=== PATIENT | male | born 2000 | race Caucasian/White ===

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

== ENCOUNTER 2021-02-20 01:29 | Emergency (ER) | payer MEDICAID ==
[2021-02-20] MEDS ORDERED: Ondansetron 4 MG/2 ML SDV IVPUSH ONE (02:06)
[2021-02-20] MEDS ORDERED: HYDROmorphone 0.5 MG/0.5 ML Syringe IVPUSH ONE (02:06)
[2021-02-20] MEDS ORDERED: Ketorolac 30 MG/ML SDV IVPUSH STA (02:06)
--- NOTE | 2021-02-20 02:10 | EDM.PDOC ---
ED HPI GENERAL MEDICAL PROBLEM - General Chief Complaint: Back Pain or Injury Stated Complaint: KIDNEY PAIN/VOMITING Time Seen by Provider: 02/20/21 01:53 Source of Information: Reports: Patient, Family () History Limitations: Reports: No Limitations - History of Present Illness INITIAL COMMENTS - FREE TEXT/NARRATIVE: Mr. Adams is a pleasant 20-year-old man who now presents the ED stating that he developed sudden-onset sharp lower back pain around 19:00 last night, 01/19/2021. The pain is only felt in his lower back, and does not radiate. He states that the pain waxes and wanes, and that he feels nauseated and has vomited when the pain increases. He has not identified any modifiers. No prior similar symptoms. He states that he took some ibuprofen, which did not help. The patient also reports that he has had 1 week of a nonproductive cough, along with a subjective fever and chills. No urinary symptoms. Here in the ED, the patient is found to be hemodynamically stable, afebrile, saturating 99% on room air. He appears to be comfortable, in no acute distress. Prior to a week ago, the patient denies having a recent fever, chills, sore throat, ear pain, nasal or sinus congestion, cough, dyspnea, chest pain, palpitations, nausea, vomiting, constipation, diarrhea, abdominal pain, urinary symptoms, recent weight gain or weight loss, recent bloody bowel movements or black bowel movements, recent joint aches, headaches, or rashes. The patient does not have a PCP. He received a single J&J COVID vaccination, although no influenza vaccination t his season. Lower Back Pain Score (Numeric/FACES): 4 - Related Data Allergies Allergy/AdvReac Type Severity Reaction Status Date / Time No Known Allergies Allergy Verified 02/20/21 01:51 Home Meds: Home Meds . [No Known Home Meds] 11/28/20 [History] Past Medical History Psychiatric History: Reports: ADHD (untreated) Social & Family History - Tobacco Use Tobacco Use Status *Q: Former Tobacco User Tobacco Use Within Last Twelve Months: Vaping (Nicotine + THC) Years of Tobacco use: 3 Packs/Tins Daily: 1 Month/Year Tobacco Last Used: Quit Jan 2021 Tobacco Use Comment: Started smoking 2018 - Alcohol Use Alcohol Use History: Yes Alcohol Use Frequency: Socially - Recreational Drug Use Recreational Drug Use: Yes Drug Use in Last 12 Months: Yes Recreational Drug Type: Reports: Marijuana/Hashish (smokes regularly) - Living Situation & Occupation Living situation: Reports: , with Spouse Occupation: Employed (Landscaping + construction) ED ROS GENERAL - Review of Systems Review Of Systems: Comprehensive ROS is negative, except as noted in HPI. ED EXAM,LOWER BACK PAIN/INJURY - Physical Exam Exam: See Below Exam Limited By: No Limitations General Appearance: Alert, WD/WN, No Apparent Distress (although says he feels like about to vomit) Eye Exam: Bilateral Eye: EOMI, Normal Inspection Ears: Normal External Exam, Hearing Grossly Normal Nose: Normal Inspection Throat/Mouth: Normal Inspection, Normal Lips, Normal Voice, No Airway Compromise Head: Atraumatic, Normocephalic Neck: Normal Inspection, Full Range of Motion Respiratory/Chest: No Respiratory Distress, Lungs Clear, Normal Breath Sounds, No Accessory Muscle Use Cardiovascular: Normal Peripheral Pulses, Regular Rate, Rhythm, No Edema, No Gallop, No JVD, No Murmur, No Rub GI/Abdominal: Normal Bowel Sounds, Soft, Non-Tender, No Organomegaly, No Distention, No Abnormal Bruit, No Mass Back Exam: Normal Inspection, Full Range of Motion, CVA Tenderness (L) (minimal, if any), CVA Tenderness (R) Extremities: Normal Inspection, Normal Range of Motion, No Pedal Edema, Normal Capillary Refill Neurological: Alert, No Motor/Sensory Deficits, Oriented x 3 Psychiatric: Normal Affect Skin Exam: Warm, Dry, Intact, Normal Color, No Rash Course - Vital Signs Last Recorded V/S: Last Vital Signs Temp 36.4 C 02/20/21 01:47 Pulse 89 02/20/21 01:47 Resp 16 02/20/21 01:47 BP 128/79 02/20/21 01:47 Pulse Ox 99 02/20/21 01:47 - Orders/Labs/Meds Orders: Active Orders 24 hr Category Date Time Status Abdomen Pelvis wo Cont [CT] Stat Exams 02/20/21 02:06 Taken Labs: Laboratory Tests 02/20/21 02/20/21 Range/Units 01:56 04:00 Urine Color Yellow (Yellow) Urine Appearance Clear (Clear) Urine pH 6.0 (5.0-8.0) Ur Specific [place] 1.020 (1.005-1.030) Urine Protein 1+ H (Negative) Urine Glucose (UA) Negative (Negative) Urine Ketones Negative (Negative) Urine Occult Blood Trace-lysed H (Negative) Urine Nitrite Negative (Negative) Urine Bilirubin Negative (Negative) Urine Urobilinogen 0.2 (0.2-1.0) Ur Leukocyte Esterase Trace H (Negative) U Hyaline Cast (Auto) 5-10 H (0-5) /lpf Urine RBC 0-5 (0-5) /hpf Urine WBC 0-5 (0-5) /hpf Ur Squamous Epith Cells 0-5 (0-5) /hpf Urine Bacteria Few (FEW) /hpf Urine Mucus Rare (FEW) /hpf SARS-CoV-2 RNA (MARLO) Negative (NEGATIVE) Meds: Medications Discontinued Medications Generic Name Dose Route Start Last Admin Trade Name Freq PRN Reason Stop Dose Admin Hydromorphone HCl 0.5 mg 02/20/21 02:06 02/20/21 02:30 Hydromorphone 0.5 Mg/0.5 Ml Syringe IVPUSH 02/20/21 02:07 0.5 mg ONETIME ONE Administration Sodium Chloride 1,000 mls @ 150 mls/hr 02/20/21 02:15 02/20/21 02:29 Normal Saline IV 150 mls/hr ASDIRECTED SAM Administration Ketorolac Tromethamine 30 mg 02/20/21 02:06 02/20/21 02:29 Ketorolac 30 Mg/Ml Sdv IVPUSH 02/20/21 02:07 30 mg ONETIME STA Administration Ondansetron HCl 4 mg 02/20/21 02:06 02/20/21 02:29 Ondansetron 4 Mg/2 Ml Sdv IVPUSH 02/20/21 02:07 4 mg ONETIME ONE Administration Tamsulosin HCl 0.4 mg 02/20/21 02:06 02/20/21 04:33 Tamsulosin 0.4 Mg Cap.Er PO 02/20/21 02:07 Not Given ONETIME ONE - Re-Assessments/Exams Free Text/Narrative Re-Assessment/Exam: 02/20/21 02:07 The patient indicates pain felt across his lower back, not in either flank, however, he has significant right CVA tenderness, and minimal left CVA tenderness, raising the suspicion of a right sided ureterolith. I have therefore ordered a urinalysis and a CT of the abdomen and pelvis without contrast to evaluate for a ureterolith. A swab for the SARS-CoV-2 virus and influenza A + B viruses was collected at triage. The patient will be given IV Dilaudid, IV Zofran, IV Toradol, oral tamsulosin, and IV fluid. 02/20/21 04:20 The patient's urinalysis is unremarkable. His swab for the SARS-CoV-2 virus and influenza A + B viruses is negative for all. CT of the abdomen and pelvis without contrast is read by [facility] as: 1. Trace amount of abnormal nonspecific free fluid noted in the pelvis, which could suggest an early acute inflammatory process, of indeterminate etiology, which is not otherwise definitively elucidated on this examination. 2. Prominent appendix as above. Findings are indeterminate and equivocal for very early acute appendicitis which cannot entirely be excluded. 3. No ureteral calculus. Remainder of findings described as above. 02/20/21 04:23 Test results discussed with the patient and his . I reexamined his abdomen, confirming that he does not have any tenderness to the right lower quadrant, or elsewhere. Despite the CT findings, the patient is not suffering from early appendicitis. I explained that the cause of his lower back pain is not known. He stated that his pain came on just after taking ibuprofen, therefore he knows that the ibuprofen "did it". I explained that the ibuprofen is not the cause of his pain, in fact, I am recommending that he continue to take ibuprofen as needed for discomfort. I offered to prescribe for him a muscle relaxant, but he declined. I will refer him to the clinic, to establish a PCP, in the event that his pain persists. Departure - Departure Time of Disposition: 04:24 Disposition: Home, Self-Care 01 Condition: Good Clinical Impression: Lower back pain - Discharge Information *PRESCRIPTION DRUG MONITORING PROGRAM REVIEWED*: Not Applicable *COPY OF PRESCRIPTION DRUG MONITORING REPORT IN PATIENT [place]: Not Applicable Instructions: Acute Back Pain, Adult Referrals: PCP,None [Primary Care Provider] - Mirian Correa NP [Nurse Practitioner] - Forms: ED Department Discharge Additional Instructions: You were seen in the emergency room after developing sudden-onset lower back pain, vomiting, along with a cough, possible fever, and chills. Work-up in the ER included a urinalysis, a swab for the SARS-CoV-2 virus and influenza A + B viruses, and a CT of your abdomen and pelvis. Your entire work-up was unremarkable, and does not explain the cause of your pain. We recommend that you take [id number] ibuprofen, 3 tablets (600 mg) up to every 8 hours, with food, as needed for discomfort. If your pain persist, please follow-up with Mirian Correa NP, or one of the other providers in the clinic, for further evaluation. If any other problems, please do not hesitate to return to the ER. Sepsis Event Note (ED) - Evaluation Sepsis Screening Result: No Definite Risk - Focused Exam Vital Signs: Vital Signs Temp Pulse Resp BP Pulse Ox 02/20/21 01:47 36.4 C 89 16 128/79 99 - My Orders Last 24 Hours: My Active Orders 02/20/21 02:06 Abdomen Pelvis wo Cont [CT] Stat - Assessment/Plan Last 24 Hours: My Active Orders 02/20/21 02:06 Abdomen Pelvis wo Cont [CT] Stat
[2021-02-20] MEDS ORDERED: Sodium Chloride 0.9% 1,000 ML IV SCH (02:15)
[2021-02-20] MEDS: Tamsulosin 0.4 MG Cap.ER PO ONE ×2 (02:30→04:33)
--- NOTE | 2021-02-20 07:06 | CT ---
CT abdomen and pelvis Technique: Multiple axial sections were obtained from above the kidneys inferiorly through the pubic symphysis. Intravenous contrast and oral contrast were not utilized. Study has been performed as a ureteral stone protocol. Reconstructed coronal and sagittal images were obtained. Findings: Kidneys show no abnormal calcifications. No ureteral dilatation is seen. No ureteral calculi are seen. No bladder calculi are seen. Appendix measures 7 mm. No definite inflammatory change is seen around the appendix. Please rule out very early appendicitis. Visualized portions of the noncontrast liver show no focal abnormality. Spleen size is within normal limits. Adrenal glands show no nodule. Pancreas shows no discrete abnormality. Gallbladder contains no calcified gallstones. Abdominal aorta shows no aneurysm. No retroperitoneal adenopathy or mesenteric abnormalities are seen. No pelvic mass or adenopathy is seen. No free fluid or inflammatory change is appreciated. Bone window settings were reviewed which show no acute osseous finding. Incidental note of unilateral spondylolytic defect is seen at L5-S1 on the left side. Impression: 1. No renal calculi, ureteral dilatation or ureteral stone is seen. 2. Appendix measures about 7 mm. No definite inflammatory change is seen. Please rule out early appendicitis with laboratory and clinical exam. 3. Incidental note of unilateral spondylolytic defect within the left side at L5-S1. Diagnostic code #3 I agree with preliminary report from [facility] finalized on 02/20/21, 4:32 AM CDT, code 1
== END 2021-02-20 04:30 | disposition home or self-care (01) ==
LOC: JD.ED 01:29
DX: M54.50 Low back pain, unspecified (principal); Z87.891 Personal history of nicotine dependence; Z20.822 Contact with and (suspected) exposure to COVID-19
CPT/HCPCS: 74176; 81001; 87635; 87804; 96374; 96375; 99284; J1170; J1885; J2405; J7030; A9270-GY; U0002

== ENCOUNTER 2021-05-10 16:18 | Emergency (ER) | payer MEDICAID ==
[2021-05-10] MEDS ORDERED: Ketorolac 30 MG/ML SDV IM ONE (16:48)
[2021-05-10] MEDS ORDERED: HYDROmorphone 0.5 MG/0.5 ML Syringe IM ONE (16:48)
== END 2021-05-10 17:25 | disposition home or self-care (01) ==
LOC: JD.ED 16:18
DX: K08.89 Other specified disorders of teeth and supporting structures (principal); Z72.0 Tobacco use
CPT/HCPCS: 96372; 99282; J1170; J1885; 99284

== ENCOUNTER 2021-05-12 11:17 | Emergency (ER) | payer MEDICAID ==
[2021-05-12] MEDS ORDERED: cefTRIAXone 1 GM, Lidocaine 1% 2.1 ML IM ONE ×2 (11:36)
== END 2021-05-12 12:49 | disposition home or self-care (01) ==
LOC: JD.ED 11:17
DX: K08.89 Other specified disorders of teeth and supporting structures (principal); Z72.0 Tobacco use
CPT/HCPCS: 96372; 99282; J0696; 99283

== ENCOUNTER 2021-05-31 21:16 | Emergency (ER) | payer MEDICAID | END 2021-05-31 22:33 | disposition home or self-care (01) | LOC: JD.ED 21:16 | DX: S50.02XA Contusion of left elbow, initial encounter (principal); Z72.0 Tobacco use; V00.211A Fall from ice-skates, initial encounter; Y93.21 Activity, ice skating | CPT/HCPCS: 73080-26-LT; 73080-LT; 99283-25 ==

== ENCOUNTER 2022-05-24 04:45 | Emergency (ER) | payer MEDICAID ==
[2022-05-24] MEDS ORDERED: Amoxicillin 500 MG Cap PO ONE (05:14)
[2022-05-24] MEDS ORDERED: traMADol 50 MG Tab PO ONE (05:14)
== END 2022-05-24 05:35 | disposition home or self-care (01) ==
LOC: JD.ED 04:45
DX: K08.89 Other specified disorders of teeth and supporting structures (principal)
CPT/HCPCS: 99282; A9270

== ENCOUNTER 2022-06-01 19:20 | Emergency (ER) | payer MEDICAID ==
[2022-06-01] MEDS ORDERED: Ketorolac 60 MG/2 ML SDV IM ONE (21:29)
== END 2022-06-01 22:00 | disposition home or self-care (01) ==
LOC: JD.ED 19:20
DX: M77.9 Enthesopathy, unspecified (principal)
CPT/HCPCS: 73030; 73060; 96372; 99283; J1885; 99282

== ENCOUNTER 2022-09-03 04:09 | Emergency (ER) | payer MEDICAID ==
[2022-09-03] MEDS: Lidocaine 2% Viscous Solution 15 ML UD PO STA (04:40)
[2022-09-03] MEDS: Lidocaine 1% 10 ML MDV INJECT STA (04:42)
== END 2022-09-03 05:09 | disposition home or self-care (01) ==
LOC: JD.ED 04:09
DX: K08.89 Other specified disorders of teeth and supporting structures (principal); F17.210 Nicotine dependence, cigarettes, uncomplicated
CPT/HCPCS: 64400; 99282; A9270; J3490

== ENCOUNTER 2022-09-04 06:22 | Emergency (ER) | payer MEDICAID ==
[2022-09-04] MEDS ORDERED: Acetaminophen/HYDROcodone 325-10 MG Tab PO ONE (07:22)
== END 2022-09-04 07:42 | disposition home or self-care (01) ==
LOC: JD.ED 06:22
DX: K02.9 Dental caries, unspecified (principal); F17.210 Nicotine dependence, cigarettes, uncomplicated
CPT/HCPCS: 99282; A9270

== ENCOUNTER 2022-10-26 17:02 | Emergency (ER) | payer MEDICAID ==
[2022-10-26] MEDS ORDERED: Acetaminophen/oxyCODONE 325-5 MG Tab PO ONE (17:45)
[2022-10-26] MEDS ORDERED: Amoxicillin 500 MG Cap PO ONE (17:45)
== END 2022-10-26 18:20 | disposition home or self-care (01) ==
LOC: JD.ED 17:02
DX: K02.9 Dental caries, unspecified (principal)
CPT/HCPCS: 99282; A9270

== ENCOUNTER 2022-10-27 03:19 | Emergency (ER) | payer MEDICAID | END 2022-10-27 03:48 | disposition home or self-care (01) | LOC: JD.ED 03:19 | DX: K08.89 Other specified disorders of teeth and supporting structures (principal) | CPT/HCPCS: 99282 ==

== ENCOUNTER 2022-11-15 07:49 | Emergency (ER) | payer MEDICAID | END 2022-11-15 08:30 | disposition home or self-care (01) | LOC: JD.ED 07:49 | DX: K08.89 Other specified disorders of teeth and supporting structures (principal) | CPT/HCPCS: 99282 ==